=== PATIENT | female | born 1995 | race Caucasian/White ===

== ENCOUNTER → 2016-11-06 | Outpatient (CLI) | payer OTHER ==
--- NOTE | ~2016-11-06 | US85 ---
[facility] A Service of [facility] & [facility] [place] RADIOLOGY TEXT RESULTS PATIENT: KALEB SEXTON LOCATION: CNIV : [birth year] UNIT #: [id number] AGE: [address]: Braxton Laguna MD SEX: F ORDER DR: [id number] [facility] [address] [place], [place] [address] [id number] O MR#: [id number] Acc #: [id number] NAME: KALEB SEXTON : 1995 SEX: F STUDY DATE/TIME: 11/06/2016 12:09 UNIT: CNIV ROOM: STUDY DESCRIPTION: [facility] Attending Physician: Braxton Laguna M.D. Referring Physician: Braxton Laguna M.D. Ordering Physician: Braxton Laguna M.D. Primary Care Physician: Braxton Laguna M.D. MEDICAL IMAGING REPORT This report is preliminary unless electronic signature is present EXAM Left leg vein Doppler 11/06/2016. INDICATIONS Left leg pain with some numbness for the last 8 hours. Fall 8 hours ago. TECHNIQUE Venous ultrasound examination of the left lower extremity was performed using grayscale, spectral Doppler and color flow Doppler imaging. FINDINGS The examination is negative. There is no evidence of left lower extremity deep venous thrombus from the groin to the lower calf. Visualized greater saphenous vein is also patent. IMPRESSION Negative examination. No evidence of left lower extremity deep venous thrombosis. Dictated by... Marcellus Castellano Jr., M.D. THIS IS AN ELECTRONICALLY VERIFIED REPORT Marcellus Castellano Jr., M.D. at 11/08/2016 7:18 AM KHARI/mikel TD: 11/06/2016 17:32 JOB #: [id number] MEDICAL IMAGING REPORT Page 1 of 1 COPY
== END | disposition home or self-care (01) ==
LOC: CNIV 11:00
DX: R20.0 Anesthesia of skin (principal)
CPT/HCPCS: 93971